=== PATIENT | female | born 1975 ===

== ENCOUNTER 2017-04-17 06:11 | Day surgery (SDC) | payer OTHER ==
[2017-04-08 09:36] VITALS: BMI 31.8
[2017-04-17] MEDS ORDERED: Midazolam 2 MG/2 ML VIAL ONE (07:28)
[2017-04-17] MEDS ORDERED: Propofol 10 mg/ml Inj (20 ML) ONE ×2 (07:28→09:20)
[2017-04-17] MEDS ORDERED: Rocuronium 10 mg/ml (5 ml) ONE (07:30)
[2017-04-17] MEDS ORDERED: Bupivacaine/Epi 0.25%-1:200,000 10 ml PF inj IJ ONE (07:43)
[2017-04-17] MEDS ORDERED: Lidocaine 1% Inj (20ml) ONE (07:43)
[2017-04-17] MEDS ORDERED: Lactated Ringer's 1,000 ML IV ONE ×3 (08:12→09:23)
[2017-04-17] MEDS ORDERED: cefOXitin IV 1 gm in Dextrose 1 GM/50 ML BAG IVPB ONE (08:18)
[2017-04-17] MEDS ORDERED: Neostigmine Methylsulfate 3mg/3ml Syringe IV ONE (09:24)
[2017-04-17] MEDS ORDERED: Oxycodone/Acetaminophen 5/325 mg Tab PO PRN (10:05)
--- NOTE | 2017-04-17 10:05 | PCM.SURG1 ---
Surgeon's Initial Post Op Note - Surgeon's Notes Surgeon: Dr Forman Field Sales Trainer: Dr Go PGY2, Deena Fonseca [employer] Type of Anesthesia: General Endo Pre-Operative Diagnosis: cholelithiasis Operative Findings: as above Post-Operative Diagnosis: as above Operation Performed: robotic cholecystectomy Specimen/Specimens Removed: gallbladder Estimated Blood Loss: EBL {In ML}: 10 Blood Products Given: N/A Drains Used: No Drains Post-Op Condition: Good Date of Surgery/Procedure: 04/17/17 Time of Surgery/Procedure: 10:05
[2017-04-17] MEDS ORDERED: HYDROmorphone 0.5 mg/0.5 ml ISec IVP PRN (10:06)
--- NOTE | 2017-04-17 11:15 | OP ---
PROCEDURE DATE: 04/17/2017 PREOPERATIVE DIAGNOSES: Chronic cholecystitis and cholelithiasis. POSTOPERATIVE DIAGNOSES: Chronic cholecystitis and cholelithiasis. PROCEDURE DONE: Robotic cholecystectomy. SURGEON: Hemant Forman M.D. SALES AGENT FINANCIAL REPORT SERVICE: Deena Fonseca and Abbi Dodson. ALESSANDRA Pineda was present from the beginning to the end of the procedure, helped in prepping and draping, placement of the port, docking and undockin g of the robot and closure of the wound. ANESTHESIA: General endotracheal tube anesthesia. ESTIMATED BLOOD LOSS: Around 10 mL. DRAINS: None. PATHOLOGY: The gallbladder with the gallstone was sent for pathology. COMPLICATIONS: None. COMPLICATIONS: None. INTRAOPERATIVE FINDINGS: The patient had chronic cholecystitis and cholelithiasis. INTRAOPERATIVE STEPS: This 41-year-old female who was diagnosed with cholelithiasis and chronic chol ecystitis and patient was consented for robotic cholecystectomy, possible open. Brought to the OR, p laced supine on the operating table. After induction of the anesthesia, abdomen was prepped and drap ed in the usual sterile fashion. Supraumbilical transverse incision was made. The patient was incis ed. Robotic camera port was placed. Another two 8 mm ports were placed in right and left upper quad rant and another 5 mm port was placed in the midclavicular line on the right side. Robot was brought in. The robotic arm was docked and the grasper and hook was introduced. Calot's triangle dissectio n was done. Cystic duct and cystic artery was identified and clipped at 3 places and cut in between 2 clips nearby gallbladder. Gallbladder was dissected free from the gallbladder fossa, taken in Endo Catch bag, taken out through the umbilical port site and sent to the table for the pathology. There was a proper hemostasis in each and every part of the procedure. The patient was extubated in the OR , sent to the postanesthesia care unit in stable condition. Hemant Forman MD cc: [id number] TT: 04/17/2017 11:14:53 an
[2017-04-17 11:33] VITALS: BP 111/73; PULSE 73; RESP 18; TEMP 97.6; O2SAT 100
== END 2017-04-17 13:00 | disposition home or self-care (01) ==
LOC: C.SDS 06:11
PROVIDERS: ATTEND Surgery Surgical Critical Care
DX: K80.10 Calculus of gallbladder with chronic cholecystitis without obstruction (principal)
CPT/HCPCS: 47562; 88304; J0694; J1100; J1170; J1885; J2001; J2250; J2405; J2704; J2710; J3010; J7030; J7120; S2900